=== PATIENT | male | born 1960 | race African-American/Black ===

== ENCOUNTER 2020-09-09 20:00 | Inpatient (IN) | payer OTHER ==
[2020-09-09 21:32] VITALS: BMI 22.4
[2020-09-10] MEDS ORDERED: NICOTINE POLACRILEX 2 MG GUM BUC PRN (01:25)
[2020-09-10] MEDS ORDERED: MAGNESIUM CITRATE 300 ML BOTTLE PO PRN (01:25)
[2020-09-10] MEDS ORDERED: cloNIDine HCL 0.1 MG TABLET PO PRN (01:25)
[2020-09-10] MEDS ORDERED: DICYCLOMINE HCL 10 MG CAPSULE PO PRN (01:25)
[2020-09-10] MEDS ORDERED: MAGNESIUM HYDROX 2400MG/30ML ORAL SUSPENSION 30 ML CUP PO PRN (01:25)
[2020-09-10] MEDS ORDERED: NALOXONE HCL 0.4 MG/ML VIAL IM PRN (01:25)
[2020-09-10] MEDS ORDERED: MAG HYDROX/AL HYDROX/SIMETH 30 ML UNIT-DOSE CUP PO PRN (01:25)
[2020-09-10] MEDS ORDERED: ONDANSETRON *ODT* 4 MG TABLET SL PRN (01:25)
[2020-09-10] MEDS ORDERED: NALOXONE (NARCAN) HCL 4 MG/0.1 ML SPRAY NS PRN (01:25)
[2020-09-10] MEDS ORDERED: BISMUTH SUBSALICYLATE 524 MG/30 ML PO PRN (01:25)
[2020-09-10] MEDS ORDERED: guaiFENesin 200 MG/10 ML 10 ML UNIT-DOSE CUPS PO PRN (01:25)
[2020-09-10] MEDS ORDERED: MENTHOL/PHENOL 1 EACH UD MM PRN (01:25)
[2020-09-10] MEDS ORDERED: ACETAMINOPHEN 325 MG TABLET (FP) PO PRN ×2 (01:25)
[2020-09-10] MEDS ORDERED: IBUPROFEN 400 MG TABLET (FP) PO PRN (01:25)
[2020-09-10] MEDS ORDERED: P-EPHED 60MG/TRIPROLIDI 2.5MG TABLET PO PRN (01:25)
[2020-09-10] MEDS ORDERED: METHADONE HCL 10 MG TABLET (FOR DETOX USE ONLY) PO ONE (01:25)
[2020-09-10] MEDS ORDERED: METHADONE HCL 10 MG TABLET (FOR DETOX USE ONLY) ONE (04:12)
[2020-09-10 09:57] LABS: HEMATOCRIT 33.5 % (35.4-49); HEMOGLOBIN 11.6 GM/dL (11.7-16.9); MCH 30.9 pg (25.7-33.7); MCHC 34.7 g/dl (32.0-35.9); MEAN CELL VOLUME 89.2 fl (80-96); MEAN PLT VOLUME 7.5 fl (7.5-11.1); PLATELET COUNT 290 K/MM3 (134-434); RBC 3.76 M/mm3 (4.00-5.60); RDW 13.1 % (11.9-15.9)
[2020-09-10] MEDS ORDERED: METHADONE HCL 5 MG TABLET (FOR DETOX USE ONLY) PO ONE (10:00)
[2020-09-10 10:12] LABS: ALBUMIN 3.8 g/dl (3.4-5.0); CALCIUM 9.2 mg/dL (8.5-10.1)
[2020-09-10 10:14] LABS: BLOOD UREA NITROGEN 15.6 mg/dL (7-18)
[2020-09-10 10:15] LABS: CREATININE 0.9 mg/dL (0.55-1.3)
[2020-09-10 10:18] LABS: BILIRUBIN,TOTAL 0.6 mg/dL (0.2-1); TOT PROT 7.4 g/dl (6.4-8.2)
[2020-09-10] MEDS: PRENATAL VITAMINS W/ FOLIC ACID TABLET (FP) PO SCH (10:22)
[2020-09-10] MEDS: NICOTINE 14 MG/24 HOURS TOPICAL PATCH TD SCH (10:22)
[2020-09-10 11:32] LABS: HIV INTERPRETATION NEGATIVE (NEGATIVE)
[2020-09-10] MEDS ORDERED: MASKS NR ONE (11:56)
[2020-09-10] MEDS: DOCUSATE SODIUM 100 MG CAPSULE (FP) PO PRN (13:17)
[2020-09-10] MEDS: LORATADINE 10 MG TABLET PO SCH (13:17)
[2020-09-10] MEDS: METHOCARBAMOL 500 MG TABLET PO PRN (22:06)
[2020-09-10] MEDS: THIAMINE HCL 100 MG TABLET (FP) PO SCH (22:06)
[2020-09-10] MEDS: MELATONIN 5 MG TABLETS PO SCH (22:06)
[2020-09-11] MEDS ORDERED: METHADONE HCL 10 MG TABLET (FOR DETOX USE ONLY) ONE (09:55)
[2020-09-11] MEDS ORDERED: METHADONE HCL 5 MG TABLET (FOR DETOX USE ONLY) ONE (09:55)
[2020-09-11] MEDS ORDERED: METHADONE (DETOX) 20 MG, METHADONE (DETOX) 5 MG PO ONE (10:00)
[2020-09-11] MEDS: LISINOPRIL 5 MG TABLET PO SCH (10:27)
[2020-09-11] MEDS: LORATADINE 10 MG TABLET PO SCH (10:27)
[2020-09-11] MEDS: PRENATAL VITAMINS W/ FOLIC ACID TABLET (FP) PO SCH (10:27)
[2020-09-11] MEDS: METHOCARBAMOL 500 MG TABLET PO PRN ×2 (10:27→22:08)
[2020-09-11] MEDS: ASPIRIN COATED 81 MG TABLET.EC PO SCH (10:27)
[2020-09-11] MEDS: metoPROLOL SUCCINATE 25 MG TAB.SR.24H (FP) PO SCH (10:27)
[2020-09-11] MEDS: NICOTINE 14 MG/24 HOURS TOPICAL PATCH TD SCH (10:28)
[2020-09-11] MEDS: MELATONIN 5 MG TABLETS PO SCH (22:07)
[2020-09-11] MEDS: THIAMINE HCL 100 MG TABLET (FP) PO SCH (22:07)
[2020-09-11] MEDS: DOCUSATE SODIUM 100 MG CAPSULE (FP) PO PRN (22:08)
[2020-09-12] MEDS: NICOTINE 14 MG/24 HOURS TOPICAL PATCH TD SCH (09:26)
[2020-09-12] MEDS: LORATADINE 10 MG TABLET PO SCH (09:26)
[2020-09-12] MEDS: LISINOPRIL 5 MG TABLET PO SCH (09:26)
[2020-09-12] MEDS: metoPROLOL SUCCINATE 25 MG TAB.SR.24H (FP) PO SCH (09:26)
[2020-09-12] MEDS: PRENATAL VITAMINS W/ FOLIC ACID TABLET (FP) PO SCH (09:26)
[2020-09-12] MEDS: ASPIRIN COATED 81 MG TABLET.EC PO SCH (09:26)
[2020-09-12] MEDS ORDERED: METHADONE HCL 10 MG TABLET (FOR DETOX USE ONLY) PO ONE (10:00)
[2020-09-12] MEDS: QUEtiapine FUMARATE 25 MG TABLET PO SCH ×2 (22:30→23:18)
[2020-09-12] MEDS: THIAMINE HCL 100 MG TABLET (FP) PO SCH (22:30)
[2020-09-12] MEDS: MELATONIN 5 MG TABLETS PO SCH (22:30)
[2020-09-13] MEDS ORDERED: METHADONE HCL 10 MG TABLET (FOR DETOX USE ONLY) ONE (09:24)
[2020-09-13] MEDS ORDERED: METHADONE HCL 5 MG TABLET (FOR DETOX USE ONLY) ONE (09:24)
[2020-09-13] MEDS ORDERED: METHADONE (DETOX) 10 MG, METHADONE (DETOX) 5 MG PO ONE (10:00)
[2020-09-13] MEDS: LISINOPRIL 5 MG TABLET PO SCH (10:18)
[2020-09-13] MEDS: PRENATAL VITAMINS W/ FOLIC ACID TABLET (FP) PO SCH (10:18)
[2020-09-13] MEDS: metoPROLOL SUCCINATE 25 MG TAB.SR.24H (FP) PO SCH (10:18)
[2020-09-13] MEDS: NICOTINE 14 MG/24 HOURS TOPICAL PATCH TD SCH (10:18)
[2020-09-13] MEDS: LORATADINE 10 MG TABLET PO SCH (10:18)
[2020-09-13] MEDS: ASPIRIN COATED 81 MG TABLET.EC PO SCH (10:18)
[2020-09-13] MEDS: METHOCARBAMOL 500 MG TABLET PO PRN (10:22)
[2020-09-13 14:06] LABS: SARS-CoV-2 NAA Not Detected (Not Detected)
[2020-09-13] MEDS: MELATONIN 5 MG TABLETS PO SCH (22:06)
[2020-09-13] MEDS: QUEtiapine FUMARATE 25 MG TABLET PO SCH (22:06)
[2020-09-13] MEDS: THIAMINE HCL 100 MG TABLET (FP) PO SCH (22:06)
[2020-09-13] MEDS: ATORVASTATIN CA 40 MG TABLET (FP) PO SCH (22:07)
[2020-09-14] MEDS: ASPIRIN COATED 81 MG TABLET.EC PO SCH (09:32)
[2020-09-14] MEDS: PRENATAL VITAMINS W/ FOLIC ACID TABLET (FP) PO SCH (09:32)
[2020-09-14] MEDS: LORATADINE 10 MG TABLET PO SCH (09:32)
[2020-09-14] MEDS: LISINOPRIL 5 MG TABLET PO SCH (09:32)
[2020-09-14] MEDS: metoPROLOL SUCCINATE 25 MG TAB.SR.24H (FP) PO SCH (09:32)
[2020-09-14] MEDS: NICOTINE 14 MG/24 HOURS TOPICAL PATCH TD SCH (09:32)
[2020-09-14] MEDS: METHOCARBAMOL 500 MG TABLET PO PRN ×2 (09:57→22:09)
[2020-09-14] MEDS ORDERED: METHADONE HCL 10 MG TABLET (FOR DETOX USE ONLY) PO ONE (10:00)
[2020-09-14] MEDS: THIAMINE HCL 100 MG TABLET (FP) PO SCH (22:06)
[2020-09-14] MEDS: QUEtiapine FUMARATE 25 MG TABLET PO SCH (22:06)
[2020-09-14] MEDS: ATORVASTATIN CA 40 MG TABLET (FP) PO SCH (22:06)
[2020-09-14] MEDS: MELATONIN 5 MG TABLETS PO SCH (22:06)
[2020-09-15] MEDS ORDERED: METHADONE HCL 5 MG TABLET (FOR DETOX USE ONLY) PO ONE (06:00)
[2020-09-15 06:57] VITALS: TEMP 97.1
[2020-09-15 08:57] VITALS: BP 132/73; PULSE 68
== END 2020-09-15 09:20 | disposition home or self-care (01) | DRG 773 ==
LOC: YASAS 20:00 → Y3N 09-10 02:17
PROVIDERS: ADMIT Allergy & Immunology; ATTEND Allergy & Immunology
PROC: HZ2ZZZZ Detoxification Services for Substance Abuse Treatment (ICD-10-PCS; principal; 2020-09-10)
DX: F11.23 Opioid dependence with withdrawal (principal); F17.210 Nicotine dependence, cigarettes, uncomplicated; F19.282 Other psychoactive substance dependence with psychoactive substance-induced sleep disorder; F19.24 Other psychoactive substance dependence with psychoactive substance-induced mood disorder; D64.9 Anemia, unspecified; E78.5 Hyperlipidemia, unspecified; I25.10 Atherosclerotic heart disease of native coronary artery without angina pectoris; M54.5 Low back pain; G89.29 Other chronic pain
CPT/HCPCS: 36415; 80053; 85027; 86780; 87389; 93005; 93010; C9803; U0003; U0005